=== PATIENT | female | born 1990 | race Hispanic/Latino ===

== ENCOUNTER 2016-08-24 23:34 | Emergency (ER) | payer SELFPAY ==
[2016-08-24 23:41] VITALS: BMI 22.3
[2016-08-24 23:46] VITALS: TEMP 98.1
--- NOTE | 2016-08-25 00:29 | ED PDOC ---
HPI: Psych/Substance Abuse Time Seen by Provider: 08/25/16 00:02 Chief Complaint (Nursing): Alcohol Ingestion Chief Complaint (Provider): etoh History Per: EMS Additional History Per: EMS Additional Complaint(s): 26 y/o female brought in by EMS for acute alcohol intoxication. HPI slightly limited due to patient's current state of intoxication Past Medical History Reviewed: Historical Data, Nursing Documentation, Vital Signs Vital Signs: Last Vital Signs Temp 98.1 F 08/24/16 23:43 Pulse 134 H 08/24/16 23:43 Resp 15 08/24/16 23:43 BP 136/89 08/24/16 23:43 Pulse Ox 98 08/24/16 23:43 - Family History Family History: States: Unknown Family Hx - Allergies Allergies/Adverse Reactions: Allergies Allergy/AdvReac Type Severity Reaction Status Date / Time No Known Allergies Allergy Verified 08/24/16 23:41 Review of Systems Review Of Systems: ROS cannot be obtained secondary to pt's inabilty to answer questions. Physical Exam - Reviewed Nursing Documentation Reviewed: Yes Vital Signs Reviewed: Yes - Physical Exam Appears: Positive for: Well, Non-toxic, No Acute Distress Head Exam: Positive for: ATRAUMATIC, NORMAL INSPECTION, NORMOCEPHALIC Skin: Positive for: Normal Color Eye Exam: Positive for: Normal appearance, EOMI, PERRL ENT: Positive for: Normal ENT Inspection Cardiovascular/Chest: Positive for: Regular Rate, Rhythm Respiratory: Positive for: Normal Breath Sounds Gastrointestinal/Abdominal: Positive for: Normal Exam Extremity: Positive for: Normal ROM Neurologic/Psych: Positive for: Alert, Oriented (x1), Other (slurred speech, + AOB) - Laboratory Results Result Diagrams: 08/25/16 00:30 08/25/16 00:30 - ECG O2 Sat by Pulse Oximetry: 98 ED OBSERVATION Date of observation admission: 08/25/16 Time of observation admission: 01:19 - Observation admission statement Patient is being placed in observation because:: acute alcohol intoxication - Goals of Observation Goals of observation are:: observe for clinical sobriety - Progress Note Progress Note: 08/25/16 1:30 Patient awake, no distress 3:30 Patient sleeping, no distress 5:00 Patient awake, alert, oriented x3. Ambulating steady gait. Stable for discharge. Disposition - Clinical Impression Clinical Impression: Acute alcohol intoxication - Patient ED Disposition Is Patient to be Admitted: No Counseled Patient/Family Regarding: Studies Performed, Diagnosis, Need For Followup, Rx Given - Disposition Disposition: Routine/Home Disposition Time: 04:58 Condition: IMPROVED Instructions: Alcohol Intoxication (ED)
[2016-08-25 00:50] LABS: BASO # 0.1 K/uL (0.0-0.2); BASO % 0.7 % (0.0-2.0); EOS # 0.1 K/uL (0.0-0.7); HEMATOCRIT 42.4 % (34.0-47.0); LYMPH # 3.4 K/uL (1.0-4.3); MEAN CELL VOLUME 99.6 fl (81.0-99.0); MEAN CORPUSCULAR HEMOGLOBIN 33.3 pg (27.0-31.0); MEAN CORPUSCULAR HGB CONC 33.4 g/dL (33.0-37.0); MEAN PLATELET VOLUME 8.4 fl (7.2-11.7); MONO # 0.4 K/uL (0.0-0.8); MONO % 4.8 % (0.0-10.0); NEUT # 4.2 K/uL (1.8-7.0); NEUT % 51.5 % (50.0-75.0); WHITE BLOOD COUNT 8.2 K/uL (4.8-10.8)
[2016-08-25 00:51] VITALS: RESP 18
[2016-08-25 01:04] LABS: ALB/GLOB RATIO 1.8 (1.0-2.1); ALKALINE PHOSPHATASE 50 U/L (38-126); ALT/SGPT 33 U/L (9-52); AST/SGOT 25 U/L (14-36); BILIRUBIN,TOTAL 0.4 mg/dl (0.2-1.3); BLOOD UREA NITROGEN 13 mg/dl (7-17); CALCIUM 9.7 mg/dL (8.4-10.2); CARBON DIOXIDE 21 mmol/L (22-30); CHLORIDE 104 mmol/L (98-107); GFR AFRICAN-AMERICAN > 60; GLUCOSE,RANDOM 109 mg/dL (65-105); POTASSIUM 3.6 MMOL/L (3.6-5.0); SODIUM 142 mmol/l (132-148); TOTAL PROTEIN 8.2 G/DL (6.3-8.2)
[2016-08-25 01:14] LABS: ALCOHOL SERUM 339 mg/dl (0-10)
[2016-08-25 05:15] VITALS: BP 134/78; PULSE 102; O2SAT 100
== END 2016-08-25 05:19 | disposition home or self-care (01) ==
LOC: H.ER 23:34
DX: F10.129 Alcohol abuse with intoxication, unspecified (principal)
CPT/HCPCS: 80053; 82948; 85025; 99283; G0480